=== PATIENT | male | born 2000 | race Hispanic/Latino ===

== ENCOUNTER 2023-10-10 06:05 | Day surgery (SDC) | payer OTHER ==
[2023-10-09 11:05] VITALS: BMI 22.4
[2023-10-10] MEDS ORDERED: Bupivacaine PF 0.5% 30 ML VIAL ONE ×2 (06:33→07:01)
[2023-10-10] MEDS ORDERED: EPINEPHrine 1 MG/ML VIAL ONE ×2 (06:33→07:00)
[2023-10-10] MEDS ORDERED: Vancomycin 1 GM VIAL ONE ×2 (06:36→07:11)
[2023-10-10] MEDS ORDERED: Midazolam HCl 2 mg/2 ml Vial ONE (06:59)
[2023-10-10] MEDS ORDERED: fentaNYL 50 mcg/mL 1 mL Vial ONE ×2 (07:00→07:21)
[2023-10-10] MEDS ORDERED: Lidocaine 1% PF 5 ML VIAL ONE ×2 (07:00→07:21)
[2023-10-10] MEDS ORDERED: Dexamethasone 4 mg/ml Vial ONE (07:00)
[2023-10-10] MEDS ORDERED: CEFAZOLIN 2 GM VIAL ONE (07:11)
[2023-10-10] MEDS ORDERED: PROPOFOL 20 ML ONE (07:21)
[2023-10-10] MEDS ORDERED: Dexamethasone 20 MG/5 ML VIAL ONE (07:32)
[2023-10-10] MEDS ORDERED: PHENYLEPHRINE-NS 100 MCG/ML 10 ML SYRINGE ONE (08:08)
[2023-10-10] MEDS ORDERED: Ondansetron PF 4 MG/2 ML Vial ONE (08:28)
[2023-10-10] MEDS ORDERED: Ketorolac Tromethamine 30 MG (1 mL) VIAL ONE (08:28)
[2023-10-10] MEDS ORDERED: Meperidine HCl/PF 25 MG (1 mL) VIAL ONE (08:59)
[2023-10-10] MEDS ORDERED: HYDROcodone/Acetaminophen 7.5/325 mg Tablet ONE (09:52)
== END 2023-10-10 10:50 | disposition home or self-care (01) ==
LOC: CSHSDC 06:05
PROVIDERS: ATTEND Orthopaedic Surgery Sports Medicine
PROC: 0MQP4ZZ Repair Left Knee Bursa and Ligament, Percutaneous Endoscopic Approach (ICD-10-PCS; principal; 2023-10-10)
PROC: 0SBD4ZZ Excision of Left Knee Joint, Percutaneous Endoscopic Approach (ICD-10-PCS; principal; 2023-10-10)
DX: S83.512A Sprain of anterior cruciate ligament of left knee, initial encounter (principal); S83.282A Other tear of lateral meniscus, current injury, left knee, initial encounter; X50.1XXA Overexertion from prolonged static or awkward postures, initial encounter
CPT/HCPCS: C1713; J0171; J0665; J1100; J1885; J2175; J2250; J2405; J2704; J3010; J3370